=== PATIENT | male | born 1945 | race Hispanic/Latino ===

== ENCOUNTER 2018-07-21 10:11 | Observation (INO) | payer MEDICARE ==
[~2018-07-21] VITALS: Ht 175.3 cm; Wt 83.5 kg
[2018-07-21] MEDS ORDERED: ASPIRIN 81 MG CHEW TAB PO ONE (10:30)
[2018-07-21] MEDS ORDERED: MAGNESIUM SULFATE 2GM/50ML 50 ML IV ONE ×2 (10:58→11:01)
--- NOTE | 2018-07-21 10:58 | NUR ---
DR. ADAIR AT BEDSIDE FOR PATIENT EVAL AT THIS TIME.
--- NOTE | 2018-07-21 11:05 | NUR ---
CRASH CART BROUGHT INTO ROOM 9, AND PT PLACED ON PACER PADS FOR MONITORING AND PRECAUTIONARY MEASURE AT THIS TIME, DR. ADAIR MADE AWARE OF THIS.
[2018-07-21] MEDS ORDERED: SODIUM CHLORIDE 0.9% 1000ML 1,000 ML ONE (11:09)
[2018-07-21 11:23] LABS: EOSINOPHILS # (AUTO) 0.1 (0.0-0.4); EOSINOPHILS % 2.9 % (0.0-6.0); HEMATOCRIT 34.7 % (38.2-49.6); HEMOGLOBIN 10.6 g/dL (14.0-18.0); LYMPHOCYTES # (AUTO) 1.3 (1.0-3.2); MEAN CORPUSCULAR HEMOGLOBIN 23.8 pg (28-32); MEAN CORPUSCULAR HGB CONC 30.5 g/dL (31-35); MONOCYTES # (AUTO) 0.4 (0.2-0.8); MONOCYTES % 9.8 % (4.4-11.3); NEUTROPHILS # (AUTO) 2.2 (2.1-6.9); NEUTROPHILS % 55.1 % (38.7-80.0); PLATELET COUNT 167 x10e3/uL (140-360); RED BLOOD COUNT 4.45 x10e6/uL (4.3-5.7); RED CELL DISTRIBUTION WIDTH 16.1 % (11.7-14.4)
[2018-07-21] MEDS ORDERED: SODIUM CHLORIDE 0.9% 1000ML 1,000 ML IV SCH (11:30)
[2018-07-21 11:40] LABS: ALANINE AMINOTRANSFERASE 9 IU/L (0-55); ALBUMIN/GLOBULIN RATIO 1.3 (0.8-2.0); ALKALINE PHOSPHATASE 76 IU/L (40-150); ANION GAP 9.3 mmol/L (8-16); BLOOD UREA NITROGEN 11 mg/dL (7-26); BUN/CREATININE RATIO 14 (6-25); CALCIUM 9.2 mg/dL (8.4-10.2); CARBON DIOXIDE 23 mmol/L (22-29); CHLORIDE 107 mmol/L (98-107); CREATINE KINASE 55 IU/L (30-200); CREATININE, SERUM 0.81 mg/dL (0.72-1.25); EST GLOMERULAR FILTRATION RATE > 60 ML/MIN (60-); GLUCOSE 89 mg/dL (74-118); POTASSIUM 3.3 mmol/L (3.5-5.1); SODIUM 136 mmol/L (136-145)
[2018-07-21] MEDS ORDERED: POTASSIUM CHLORIDE 20 MEQ TAB CR PO STA (11:46)
--- NOTE | 2018-07-21 13:10 | NUR ---
DR. QUINTERO PRESENT AT THE BEDSIDE FOR PATIENT EVAL, PENDING ORDERS.
[2018-07-21 13:25] LABS: MAGNESIUM 1.7 MG/DL (1.3-2.1)
--- NOTE | 2018-07-21 13:32 | NUR ---
PT RESTING IN BED WITH EYES CLOSED, BREATHING EVEN/UNLABORED, NO DISTRESS NOTED, AT BEDSIDE, INSTRUCTED TO CALL FOR ASSISTANCE, VERBALIZED UNDERSTANDING.
[2018-07-21 13:52] LABS: THYROID STIMULATING HORMONE 3.558 uIU/mL (0.350-4.940)
[2018-07-21] MEDS ORDERED: VITAMIN D32000 UNI1 PO (15:45)
[2018-07-21] MEDS ORDERED: SIMVASTATIN20 MG PO (15:45)
[2018-07-21] MEDS ORDERED: PACERONE100 MG PO (15:45)
[2018-07-21] MEDS ORDERED: FLOMAX0.4 MG PO (15:45)
[2018-07-21] MEDS ORDERED: METFORMIN HCL500 M2 PO (15:45)
[2018-07-21] MEDS ORDERED: ASPIRIN81 MG PO (15:45)
[2018-07-21] MEDS ORDERED: ZOLOFT50 MG PO (15:45)
[2018-07-21] MEDS ORDERED: SINEMET 25-1001 EACH PO (15:45)
[2018-07-21] MEDS ORDERED: ARICEPT5 MG PO (15:45)
[2018-07-21] MEDS: INSULIN LISPRO 100 UNIT/1 ML 3ML VIAL SQ SCH ×2 (16:30→21:00)
[2018-07-21 17:16] VITALS: BP 154/73
--- NOTE | 2018-07-21 18:10 | Diagnostic Imaging Report ---
EXAMINATION: CHEST SINGLE (PORTABLE) INDICATION: Bradycardia. ^sob COMPARISON: None FINDINGS: AP view TUBES and LINES: Defibrillators overlying the left chest. LUNGS: Lungs are not well inflated. There are bibasilar atelectasis and perihilar vascular crowding. There is mild prominence of the central pulmonary vasculature, consistent with pulmonary venous congestion. PLEURA: No pleural effusion or pneumothorax. HEART AND MEDIASTINUM: Cardiac size is mildly enlarged. BONES AND SOFT TISSUES: No acute osseous lesion. Soft tissues are unremarkable. UPPER ABDOMEN: No free air under the diaphragm. IMPRESSION: Hypoinflated lungs with atelectasis and perihilar vascular crowding. Mild central pulmonary congestion taking into account of the hypoinflated lungs. Signed by: Dr. Laz Corrigan M.D. on 07/21/2018 6:06 PM
--- NOTE | 2018-07-21 19:10 | NUR ---
BS rounds completed with morning nurse. Pt alert and orient to name, lying in bed HOB 30 degrees. 18g IV right AC, intact. 20g IV to left hand intact. Denies pain at this time. Family at bedside. Call recio within reach. Will continue to monitor.
[2018-07-21 20:00] VITALS: BP 141/64
[2018-07-21] MEDS: CARBIDOPA/LEVODOPA 25/100 TAB PO SCH (20:02)
--- NOTE | 2018-07-21 20:08 | NUR ---
report given to oncoming nurse, for continued care .
[2018-07-21 20:15] VITALS: BP 141/64
[2018-07-21] MEDS ORDERED: LORAZEPAM 0.5 MG TAB PO ONE (21:15)
[2018-07-22] VITALS: BP 140/73
[2018-07-22 04:00] VITALS: BP 154/74
[2018-07-22 05:13] LABS: BASOPHILS % 0.8 % (0.0-1.0); EOSINOPHILS # (AUTO) 0.2 (0.0-0.4); EOSINOPHILS % 3.1 % (0.0-6.0); HEMATOCRIT 33.7 % (38.2-49.6); HEMOGLOBIN 10.6 g/dL (14.0-18.0); LYMPHOCYTES # (AUTO) 1.8 (1.0-3.2); LYMPHOCYTES % 35.8 % (18.0-39.1); MEAN CORPUSCULAR HEMOGLOBIN 24.1 pg (28-32); MEAN CORPUSCULAR HGB CONC 31.5 g/dL (31-35); MEAN CORPUSCULAR VOLUME 76.8 fL (81-99); MONOCYTES # (AUTO) 0.6 (0.2-0.8); MONOCYTES % 11.8 % (4.4-11.3); NEUTROPHILS # (AUTO) 2.4 (2.1-6.9); NEUTROPHILS % 48.1 % (38.7-80.0); PLATELET COUNT 155 x10e3/uL (140-360); RED BLOOD COUNT 4.39 x10e6/uL (4.3-5.7)
[2018-07-22 05:37] LABS: INR 0.97; PROTHROMBIN TIME 13.8 seconds (11.9-14.5)
[2018-07-22 05:42] LABS: ALANINE AMINOTRANSFERASE 8 IU/L (0-55); ALBUMIN 3.8 g/dL (3.5-5.0); ALKALINE PHOSPHATASE 75 IU/L (40-150); ANION GAP 13.6 mmol/L (8-16); BILIRUBIN,DIRECT 0.3 mg/dL (0.0-0.5); BLOOD UREA NITROGEN 11 mg/dL (7-26); BUN/CREATININE RATIO 14 (6-25); CALCIUM 9.1 mg/dL (8.4-10.2); CARBON DIOXIDE 24 mmol/L (22-29); CHLORIDE 104 mmol/L (98-107); CREATININE, SERUM 0.79 mg/dL (0.72-1.25); EST GLOMERULAR FILTRATION RATE > 60 ML/MIN (60-); GLUCOSE 96 mg/dL (74-118); MAGNESIUM 1.9 MG/DL (1.3-2.1); POTASSIUM 3.6 mmol/L (3.5-5.1); SODIUM 138 mmol/L (136-145)
[2018-07-22 05:46] LABS: PARTIAL THROMBOPLASTIN TIME 33.2 seconds (23.8-35.5)
[2018-07-22 05:50] LABS: % IRON SATURATION 6 % (15-50); IRON 26 ug/dL (65-175); TOTAL IRON BINDING CAPACITY 442 ug/dL (261-478); TRANSFERRIN 316 mg/dL (174-364)
[2018-07-22 06:40] LABS: CHOL/HDL RATIO 1.9 (3.9-4.7)
--- NOTE | 2018-07-22 07:10 | NUR ---
DURING BED SIDE REPORT PT IS CONFUSED PULL OUT IV AND TELEY MONITOR AT BED SIDE NOTIFIED CHARGE NURSE AND EMOTIONAL SUPPORT TEACHER
--- NOTE | 2018-07-22 07:20 | NUR ---
PAGED AND NOTIFIED DR QUINTERO THE PATIENTS CONDITION PT CONFUSED GOT THE ORDER TO I:1 RADHA
--- NOTE | 2018-07-22 07:25 | NUR ---
1:1 SITTER WITH PATIENT
[2018-07-22] MEDS: INSULIN LISPRO 100 UNIT/1 ML 3ML VIAL SQ SCH ×3 (07:30→16:30)
--- NOTE | 2018-07-22 08:06 | NUR ---
Patient was found sitting in recliner and watching TV getting his VS checked by the sitter Charlie Ray. I explained that I was going to start a new IV and asked what happened to the old IV. The patient responded properly by saying " I was mad at my old lady because she is going to leave me here". I responded by stating that he should call the nurse if he feels mad about anything so the nurse could possibly help. The patient stared at the TV and did not respond. I started the IV in the Left Forearm using aseptic technique and only one attempt to be successful using a 20G and securing with tape and tegaderm and flushed with 10 cc NS.
[2018-07-22 08:31] VITALS: BP 144/68
[2018-07-22 09:00] VITALS: BP 144/68
[2018-07-22] MEDS: CARBIDOPA/LEVODOPA 25/100 TAB PO SCH ×2 (09:00→16:52)
[2018-07-22 12:11] VITALS: BP 145/65
[2018-07-22] MEDS ORDERED: IRON SUCROSE 100 MG in SODIUM CHLORIDE 0.9% 100 ML 100 ML IV SCH (12:15)
--- NOTE | 2018-07-22 14:03 | NUR ---
CASE MANAGEMENT ASSESSMENT Manager Supply Chain Planning to bedside to discuss plan of care with patient/family. CM/SW role and care transitions discussed. Anticipated discharge plan discussed along with duration of care. CM/SW discussed patients right to make decisions in care. CM/SW work hours given. Patient lives: with Marilu Admit/Transfer: thru ED Hospital/ER visits since last admit: none POA/Emergency contact: Marilu Goldstein [phone] Current/Previous Home Health: none PCP/Follow-up Care: Dr. Akbar at [facility]; advised pt to follow up with MD within 7 days of discharge Current/Previous DME: walker Medications (referring to index hospitalization or the first time you were in the hospital) a. Were changes made in your medications when you were in the hospital on [date of index hospitalization]? n/a b. Did you understand the changes? n/a c. Were you able to obtain your new medications right away? n/a d. Were you able to take your medications like the doctor wanted you to? n/a e. Did the hospital give you an accurate, easy to understand list of medications when you left? n/a Scale of 1-10 how comfortable does patient feel with disease management in outpatient setting: Other Services: provider 28.5 hrs / week Employment Status: retired Areas of Concerns: bradycardia Referral Needs: none Education Needs: medical management IMM/TRACY given and signed (if applicable): TRACY Goal for discharge: home CM/SW left business card at the bedside with contact information. Name and number was also written on the patients whiteboard. Patient verbalized understanding of discussion. CM will follow-up with ongoing discharge and transition of care needs.
--- NOTE | 2018-07-22 17:05 | NUR ---
PT WENT HOME IN SAFE CONDITION WITH HIS DAUGHTER
[2018-07-22 17:53] VITALS: BP 127/62
--- NOTE | 2018-07-22 18:08 | Consultation ---
DATE OF CONSULTATION: 07/22/2018 REASON FOR CONSULTATION: Bradycardia. CHIEF COMPLAINT: Dizziness. HISTORY OF PRESENT ILLNESS: This is a 73-year-old male with history of Parkinson's dementia, hyperlipidemia, BPH, diabetes, and cardiac arrhythmias. The patient presents to [facility] ER apparently with complaints of dizziness. Apparently, the patient told on several occasion in the past couple of weeks had moments of dizziness. However, no reports of syncope reported. Cardiology was consulted. The patient seen in room. Of note, the patient is a very poor historian with history of dementia. Also was at bedside, however, is not very knowledgeable on the patient's current health issues. However, does report that the patient sees Dr. Krishnan and has an appointment in the next couple of weeks. reports that for the past 2 weeks, the patient has complained of dizziness 3 times, also noted that his heart rate on her monitor was in the 40s, 47, however, yesterday morning apparently it read as low, so EMS was called. Apparently, EMS gave atropine. Tele was reviewed extensively. Heart rate is sinus rhythm with occasional PVCs from heart rate 47 to about 64, no pauses were noted. PAST MEDICAL HISTORY: Cardiac arrhythmia, dementia, Parkinson's, hyperlipidemia, BPH, diabetes. PAST SURGICAL HISTORY: Cataract surgery. FAMILY HISTORY: Unknown. SOCIAL HISTORY: He is . He is retired. He has no alcohol or tobacco use. MEDICATIONS: Apparently amiodarone 100 mg once a day, aspirin 81 mg once a day, carbidopa/levodopa 25/100 mg twice a day, vitamin D3 2000 units daily, Aricept 5 mg daily, metformin 500 mg b.i.d., Zoloft 25 mg daily, simvastatin 20 mg daily, and Flomax 0.4 mg daily. ALLERGIES: NO KNOWN ALLERGIES. REVIEW OF SYSTEMS: The patient unable to give much information, however, there are no reports of chest pain, shortness of breath, however, positive for intermittent dizziness per and lethargy. No melena, hematochezia, or tarry stools reported. PHYSICAL EXAMINATION: VITAL SIGNS: Temperature 97.6, pulse 53, respiratory rate 17, blood pressure 144/68, pulse ox 98% on room air. GENERAL: Appears stated age, unreliable informant with history of dementia. Also, the patient has intermittent agitation, confusion, a sitter at bedside. SKIN: No rashes or bruises noted. HEENT: Normocephalic. Pupils equal and reactive. Extraocular movements are intact. Oral mucosa pink. NECK: Noted bilateral carotid bruits, more pronounced on the right. Trachea midline. No JVD noted. HEART: Regular rate and rhythm. A 3/6 systolic murmur, greatest heard on the right upper sternal border. PMI about fourth to fifth intercostal space. LUNGS: Breath sounds are clear to auscultation. Good airway entry and exit. No crackles, rales, or rhonchi noted. MUSCULOSKELETAL: Good muscle strength throughout. VASCULAR: +2 bilateral radial pulses, +1 DP/PT bilateral pulses. NEUROLOGIC: Cranial nerves II through XII are intact. LABS: Sodium 138, potassium 3.6, BUN 11, creatinine 0.7, magnesium 1.7. Troponin 0.03, 0.03. TSH 3.5. White count 4.9, hemoglobin 10.6, hematocrit 37, platelets 155. Chest x-ray showing mild central pulmonary congestion, hypoinflated lungs. EKG; sinus gabriel, first-degree AV block, heart rate about 59. ASSESSMENT: 1. Bradycardia. 2. Dizziness. 3. Dementia. 4. Hyperlipidemia. 5. Microcytic anemia. 6. History of cardiac arrhythmias. 7. Diabetes. PLAN: The patient presents apparently with complaints of intermittent dizziness for the past couple of weeks, however, the patient is very poor historian. Information obtained from . No reports of chest pain, shortness of breath, or syncope. For now: 1. We will continue telemonitoring. Tele was extensively reviewed. Heart rate ranging from 47 to 64, no pauses noted, occasional PVCs. 2. We will obtain echo to evaluate heart function and structure and assess valve structure. 3. Obtain carotid Doppler to evaluate carotid anatomy. 4. Avoid all AV paul blocking agents. We will go ahead and stop amiodarone. 5. We will continue to monitor the patient and further recommendations as clinical course dictates. Thank you very much for this consult. Seen and examined Case discussed with at length Bradycardia, possible Near Syncope, CHF in addition to Dementia and other health problems D?C Amio and Aricept, Code Status to be made Follow up with Dr. Krishnan Dictated by Rubens Yusuf, INTERNAL CONTROL ANALYST Jordon Vines MD DC/CONSUELO /[id number] MTDAnthony
--- NOTE | 2018-07-23 12:16 | Discharge Summary ---
PRIMARY CARE PHYSICIAN: Dr. Tarsha Knight. FINAL DIAGNOSIS: Symptomatic bradycardia. SECONDARY DIAGNOSES: 1. Parkinson dementia. 2. Diabetes. 3. Iron deficiency anemia. RODBUSTER: Dr. Vines, Cardiology. PROCEDURES/STUDIES PERFORMED: 1. Echocardiogram. 2. Carotid ultrasound, which was benign. HISTORY: Per H and P. HOSPITAL COURSE: The patient was admitted. His hypokalemia was repleted. His amiodarone was held. His Aricept was held. The patient did not have any heart rate dipping below 47. The patient was evaluated by Cardiology. Since his heart rate is little better at this time, the patient can be discharged with outpatient followup. His EF is 35% to 40% on echo. However, given his dementia, we elected not to be aggressive at this time. A report of the echocardiogram was given to the , who handed to his Sharmin sand polisher during his followup. The patient was also noted to have iron deficiency anemia. I have notified his PCP if there is no colonoscopy done recently, may need to consider that. The patient will get a bag of intravenous iron prior to discharge. The patient was seen and examined today. It took 32 minutes total to discharge this patient including discussion with his Cardiology. CONDITION ON DISCHARGE: Improved. DISCHARGE MEDICATIONS: Please see medication reconciliation form. MD MAXIMUS Coleman/CONSUELO /[id number]
== END 2018-07-22 17:05 | disposition home or self-care (01) ==
LOC: ER 10:17 → INTOOBSV 12:59 → ERHOLD 12:59 → MED/SURG2 16:23
PROVIDERS: ADMIT Internal Medicine; ATTEND Internal Medicine
DX: R00.1 Bradycardia, unspecified (principal); N40.0 Benign prostatic hyperplasia without lower urinary tract symptoms; E11.9 Type 2 diabetes mellitus without complications; G20 Parkinson's disease; F02.80 Dementia in other diseases classified elsewhere, unspecified severity, without behavioral disturbance, psychotic disturbance, mood disturbance, and anxiety; E78.5 Hyperlipidemia, unspecified; D50.9 Iron deficiency anemia, unspecified; I44.0 Atrioventricular block, first degree; Z79.84 Long term (current) use of oral hypoglycemic drugs; E87.6 Hypokalemia; I11.0 Hypertensive heart disease with heart failure; I50.9 Heart failure, unspecified
CPT/HCPCS: 99285; 36415 ×2; 71045; 80048; 80053; 80061; 80076; 82550; 82553; 82948 ×2; 83036; 83540; 83735 ×2; 84443; 84466; 84484 ×2; 85025 ×2; 85610; 85730; 93005; 93306; 93880; G0378 ×2; J1756; J3475; J7030